=== PATIENT | female | born 1955 | race Caucasian/White ===

== ENCOUNTER → 2019-09-11 | Outpatient (CLI) | payer BC | END | disposition home or self-care (01) | LOC: RAH 12:19 | PROVIDERS: ATTEND Family Medicine | DX: G31.89 Other specified degenerative diseases of nervous system (principal) | CPT/HCPCS: 70450 ==

== ENCOUNTER → 2022-09-29 | Outpatient (CLI) | payer MEDICARE | END | disposition home or self-care (01) | LOC: RAH 13:53 | PROVIDERS: ATTEND Family Medicine | DX: Z12.31 Encounter for screening mammogram for malignant neoplasm of breast (principal) | CPT/HCPCS: 77067 ==

== ENCOUNTER → 2023-11-16 | Outpatient (CLI) | payer MEDICARE | END | disposition home or self-care (01) | LOC: RAH 09:03 | PROVIDERS: ATTEND Family Medicine | DX: Z12.31 Encounter for screening mammogram for malignant neoplasm of breast (principal); R92.333 Mammographic heterogeneous density, bilateral breasts | CPT/HCPCS: 77067 ==

== ENCOUNTER 2024-04-07 05:42 | Observation (INO) | payer MEDICARE ==
[2024-04-02 08:41] LABS: BASOPHILS # (AUTO) 0.08 K/uL (0.00-0.20); BASOPHILS % (AUTO) 0.9 % (0.0-5.0); EOSINOPHILS # (AUTO) 0.24 K/uL (0.00-0.70); EOSINOPHILS % (AUTO) 2.8 % (0.0-8.0); HEMATOCRIT 39.3 % (36-48); IMMATURE GRANULOCYTE ABSOLUTE 0.03 K/uL (0-1); LYMPHOCYTES # (AUTO) 3.3 K/uL (1.0-4.8); LYMPHOCYTES % (AUTO) 38.8 % (21.0-51.0); MEAN CORPUSCULAR HEMOGLOBIN 28.4 pg (27.0-33.0); MEAN CORPUSCULAR HGB CONC 32.1 g/dL (32.0-36.0); MEAN CORPUSCULAR VOLUME 88.7 fL (79-99); MONOCYTES # (AUTO) 0.6 K/uL (0.1-1.0); MONOCYTES % (AUTO) 6.5 % (3.0-13.0); NEUTROPHILS # (AUTO) 4.3 K/uL (1.8-7.7); NEUTROPHILS % (AUTO) 50.6 % (40.0-77.0); PLATELET COUNT (AUTO) 301 K/uL (130-400); RED BLOOD CELL COUNT(AUTO) 4.43 MIL/uL (4.00-5.50); RED CELL DISTRIBUTION WIDTH 13.3 % (11.0-15.5); WHITE BLOOD COUNT (AUTO) 8.5 K/uL (4.8-10.8)
[2024-04-02 08:59] VITALS: BP 198/74; PULSE 82; RESP 18; TEMP 98.4
[2024-04-02 08:59] LABS: INR 1.02 (0.85-1.15)
[2024-04-02 09:00] LABS: PARTIAL THROMBOPLASTIN TIME 26.4 SEC (26.3-35.5)
[2024-04-02 09:01] LABS: ALBUMIN 3.5 g/dL (3.5-5.0); CREATININE 0.7 mg/dL (0.5-1.0); POTASSIUM 3.5 mmol/L (3.5-5.1)
[2024-04-02 09:53] LABS: APPEARANCE,URINE CLOUDY (CLEAR); BILIRUBIN,URINE NEGATIVE (NEGATIVE); COLOR,URINE YELLOW (YELLOW); GLUCOSE, URINE (UA) NEGATIVE (NEGATIVE); KETONES,URINE NEGATIVE (NEGATIVE); LEUKOCYTE ESTERASE ,URINE 500 Leu/uL (NEGATIVE); NITRATE,URINE NEGATIVE (NEGATIVE); PROTEIN,URINE 20 mg/dL (NEGATIVE); UROBILINOGEN,URINE 0.2 mg/dL (0.2-1.0)
[2024-04-02 10:12] LABS: ADD UA MICROSCOPIC YES
[2024-04-02 10:32] LABS: BACTERIA,URINE FEW /HPF (None Seen); MUCUS,URINE FEW LPF (None Seen); SQUAMOUS EPITHELIAL CELL,UR MANY /HPF (0-2); TRANSITIONAL EPI CELLS,URINE RARE /HPF (None Seen); WBC,URINE TNTC /HPF (0-1)
--- NOTE | 2024-04-04 15:46 | NUR ---
RE: LABS REPORTED UA RESULTS AND URINE CX RESULTS TO DR REDDY. NO NEW ORDERS RECEIVED.
[2024-04-07] VITALS (27 sets, daily range): BP systolic 120–181; BP diastolic 42–86; PULSE 52–107; RESP 12–20; TEMP 97.3–98.4; O2SAT 95–98
[~2024-04-07] VITALS: Ht 175.3 cm; Wt 116.8 kg
[~2024-04-07 05:42] MED LIST: APPLE CIDER PO; B1 PO; B12 PO; OSTEO BIFLEX PO; TOTAL BEETS PO; ZINC PO; d3 PO
--- NOTE | 2024-04-07 06:45 | NUR ---
ORTHO COORDINATOR: KOOSJR TOTAL SCORE: 18 TOTAL KNEE PRE-OP ASSESSMENT COMPLETED ON PAPER.
[2024-04-07] MEDS ORDERED: proPOFol 10 MG/ML 20ML VIAL IV ONE ×3 (07:04→08:57)
[2024-04-07] MEDS ORDERED: FENTanyl CITRate PF 50 MCG/1 ML 2ML VIAL ONE ×2 (07:04→07:45)
[2024-04-07] MEDS ORDERED: rocuRONium bROMide 10MG/1ML 5ML VL ONE (07:04)
[2024-04-07] MEDS ORDERED: LIDOCAINE PF 100MG/5ML (2%) SYRINGE 5ML ONE (07:04)
[2024-04-07] MEDS ORDERED: ROPivacaine 0.5% 5MG/ML 30ML ONE (07:11)
[2024-04-07] MEDS ORDERED: ondanSETRON 4MG INJ ONE (07:22)
[2024-04-07] MEDS ORDERED: dexaMETHasone SOD PHOSPHATE 10MG/ML 1ML VIAL ONE (07:22)
[2024-04-07] MEDS ORDERED: TRANEXAMIC ACID 1000MG/10ML ONE (07:23)
[2024-04-07] MEDS: ceFAZolin SODIUM 2 GM VIAL ONE (07:25)
[2024-04-07] MEDS ORDERED: ondanSETRON 4MG INJ IVP PRN (07:30)
[2024-04-07] MEDS ORDERED: DiphenhydrAMINE HCL 50 MG/ML VIAL IVP PRN (07:30)
[2024-04-07] MEDS ORDERED: PoTASSium chloRIDE 20MEQ ER 20 MEQ ERTAB PO PRN (07:30)
[2024-04-07] MEDS ORDERED: PoTASSium chloRIDE 20MEQ/100ML 100 ML IV PRN (07:30)
[2024-04-07] MEDS ORDERED: CALCIUM CARB 500MG PO PRN (07:30)
[2024-04-07] MEDS ORDERED: PoTASSium chl 10% ELIXIR 20MEQ 20 MEQ/15 ML UDCUP PO PRN (07:30)
[2024-04-07] MEDS ORDERED: CYCLOBENZAPRINE HCL 10 MG TABLET PO PRN (07:30)
[2024-04-07] MEDS: ketOROlac 15MG/ML VIAL (15MG/ML) IV SCH (07:30)
[2024-04-07] MEDS ORDERED: FERROUS FUMARATE 324 MG TABLET PO PRN (07:30)
[2024-04-07] MEDS: ketOROlac 30MG VIAL (30MG/ML) ONE (08:06)
[2024-04-07] MEDS: ROPivacaine 0.5% 5MG/ML 30ML ONE (08:07)
[2024-04-07] MEDS: TOTAL BEETS PO SCH (09:00)
[2024-04-07] MEDS: THIAMINE HCL 100 MG TABLET PO SCH (09:00)
[2024-04-07] MEDS: OSTEO BIFLEX PO SCH (09:00)
[2024-04-07] MEDS: polyETHYLene GLYCol 3350 17 GM POWD.PACK PO SCH (09:00)
[2024-04-07] MEDS: doCUSate SODIUM 100 MG CAP PO SCH (09:00)
[2024-04-07] MEDS: ASPIRIN 81 MG EC TAB PO SCH (09:00)
[2024-04-07] MEDS: CYANOCOBALAMIN (VITAMIN B-12) 100 MCG TABLET PO SCH (09:00)
[2024-04-07] MEDS: APPLE CIDER PO SCH (09:00)
[2024-04-07] MEDS: ZINC 15 MG PO SCH (09:00)
[2024-04-07] MEDS ORDERED: NEOSTIGMINE METHYLSULFATE 1MG/ML IV ONE (09:08)
[2024-04-07] MEDS ORDERED: GLYCOPYRROLATE 0.2 MG/ML 5 ML VIAL ONE (09:08)
[2024-04-07] MEDS: MEPERIDINE-PF 25 MG/ML SYG ONE ×2 (10:12→10:22)
[2024-04-07] MEDS: LACTATED RINGERS 1000ML 1,000 ML IV ONE (10:18)
[2024-04-07] MEDS: ketOROlac 15MG/ML VIAL (15MG/ML) ONE (10:48)
--- NOTE | 2024-04-07 10:55 | NUR ---
NOTE PATIENT AERATED FROM POST-OP PROCEDURE, POST OP VITALS IN PROGRESS, SEE EMAR. DRESSING TO LEFT KNEE CDI. SON AT BEDSIDE. PT LYING IN BED COMFORTABLY. CB IN REACH. DENIES ANY NEEDS AT THIS TIME.
[2024-04-07] MEDS: GABApentin 100 MG CAPSULE PO SCH (11:29)
[2024-04-07] MEDS: D3 PO SCH (11:31)
--- NOTE | 2024-04-07 12:08 | HMCIMG ---
KNEE/PATELLA 1-2VWS LT HISTORY: Postop COMPARISON: None TECHNIQUE: 2 images of left knee were obtained. FINDINGS: Total left knee arthroplasty changes are seen. There are soft tissue swelling with soft tissue emphysema with postop changes. Alignment appears be grossly adequate. There is no acute displaced fracture or dislocation. Degenerative changes are seen. IMPRESSION: 1. Findings as described above.
--- NOTE | 2024-04-07 13:00 | NUR ---
ORTHO COORDINATOR: TEACHING REGARDING DVT AND PNEUMONIA PREVENTION, PAIN EXPECTATIONS, PAIN MANAGEMENT. PATIENT IN BED. FAMILY AT BEDSIDE. B SCD'S APPLIED AND FUNCTIONING. PATIENT RETURN DEMONSTRATED PROPER USE OF INCENTIVE SPIROMETER AND FOOT EXTENSION/FLEXION EXERCISES. REVIEWED NUMERIC PAIN SCALE. INFORMED PATIENT PAIN MEDICATION MUST BE REQUESTED. REVIEWED MEDICATIONS ARE ASSIGNED BY NUMERICAL VALUE AND NOT TO WAIT UNTIL PAIN REACHES 8 TO 10. PATIENT AND FAMILY VERBALIZED UNDERSTANDING. EXPLAINED IMPORTANCE OF PREMEDICATION PRIOR TO PHYSICAL THERAPY. PATIENT AND FAMILY VERBALIZED UNDERSTANDING. PATIENT WILL NEED A WALKER AND DESIRES PHYSICAL THERAPY AT HOME. NO ADDITIONAL QUESTIONS OR CONCERNS AT THIS TIME.
--- NOTE | 2024-04-07 13:05 | OP ---
Operative Note: DATE OF PROCEDURE: 04/07/24 PREOPERATIVE DIAGNOSIS: Left knee osteoarthritis. POSTOPERATIVE DIAGNOSIS: Left knee osteoarthritis. PROCEDURE PERFORMED: Left knee total knee arthroplasty. SURGEON: Velma Green MD POWDER MIXER: Brooklynn Murray. ANESTHESIA: General with adductor canal block. ANESTHESIA: REMI Zhu. ESTIMATED BLOOD LOSS: 50cc. COMPLICATIONS: None. DRAINS: None. SPECIMENS REMOVED: resected bone. Not sent to pathology. IMPLANTS: [employer]hew Journey II BCS size 6 Oxinium femur, size 5 tibial base plate, 35 mm patella, 11 mm polyethylene STATEMENT OF MEDICAL NECESSITY: The patient is a 69-year-old female who suffers from left knee osteoarthritis failing conservative management. After discussion of the risks, benefits, and alternatives with the patient, they voluntarily agreed to undergo the aforementioned procedure. DESCRIPTION OF PROCEDURE: Patient was properly identified in the preoperative holding area. Surgical site marking was verified and surgery consent reviewed. The patient was then taken to the operating room and placed in supine position on the OR table. After induction of general anesthesia, preoperative antibiotics were given, all bony prominences were well-padded, and a well padded tourniquet was applied but not inflated at this time. The left lower extremity was then prepped and draped in usual sterile fashion. Surgical time out was done verifying correct surgery, side, site, and location to be performed. We then began the procedure by exsanguinating the limb using an Esmarch and inflating the tourniquet to 350 mmHg. At this point, we made an anterior midline incision using a 10 blade, coming down sharply the level of the fascia. Skin flaps were elevated medially and laterally. We then obtained a clean 10 blade and performed a standard medial parapatellar arthrotomy. We excised the infrapatellar fat pad. We performed our soft tissue releases off of the tibia. We transected the ACL and removed the anterior portion of the medial & lateral meniscus. We then brought the knee into hyperflexion with the patella everted. We used our entry reamer to enter the femoral canal. We then placed our intramedullary cutting guide for our distal femoral cutting block. We then performed our distal femoral osteotomy ensuring appropriate rotation and removed the bony wafer. We then removed these pins and block and then used jig 2 to size the distal femur with the after mentioned size found. We then placed our 5-in-1 cutting block in 4 degrees of external rotation and took our 5 cuts ensuring to protect the patellar tendon and the collateral ligaments. We then removed the cutting block and our bony fragments using a curved osteotome. We then placed our PCL retractor subluxating the tibia anteriorly. Using an extra medullary tibial cutting guide, we hung the block for our proximal tibial cut taking 2 mm off the more diseased portion. Prior to pinning this block in place, we ensured appropriate varus/valgus alignment and posterior slope similar to the viejas slope of the patient's knee. We then performed our proximal tibial osteotomy and removed the bony wafer using Bovie electrocautery to release any remaining soft tissue attachments. We then used our tibial sizing paddle and checked once more for varus & valgus alignment and found this to be appropriate. At this point, we pinned our tibial paddle in place. We then removed the PCL retractor and subluxated the tibia posteriorly while we placed our femoral trial component. We then finished preparing the notch with the reamer and box chisel. The notch portion of the trial femoral component was then placed. A posterior stabilized polyethylene, size 9 trial was placed. This was immediately increased up to a size 10 secondary to mild laxity with varus valgus stressing. The knee was then taken through range of motion and found to have stable full range of motion. We then placed a bump under the ankle and everted the patella to perform our freehand cut of the undersurface the patella. We then sized our patella and reamed to the lug holes for this. We placed our trial patellar component and begin to take the knee through range of motion. The patella had mild lateral tracking and a small lateral release was performed. At this point we began removing our trial components and punched the tibial keel prior to removing our tibial trial component. Final components were opened and cement was mixed on the back table while we injected local cocktail in the posterior capsule. We then thoroughly irrigated out the bone and dried the bony surfaces. We cemented our tibial component in place ensuring to remove excess cement and placed our trial polyethylene. We then cemented our femoral component in place once again taking time to ensure excess cement was removed leg was brought into full extension to help squeeze the excess cement from around the femoral component. We then brought the knee back in a flexion to remove this portion of the cement at this point we placed the ankle in a bump thoroughly irrigated off the patellar component and cemented our patellar component in standard fashion again removing excess cement. While we waited for the cement to cure, we thoroughly irrigated out the wound with normal saline. Once our cement had cured, we took the knee through a range of motion and found full and stable range of motion. We then elected to use the size 11 polyethylene and removed our trial polyethylene. We impacted our final polyethylene component in place in standard fashion and took the knee through a range of motion check once more. This was satisfactory so we began to repair the arthrotomy using #1 Vicryl in interrupted [id number] fashion. Subcutaneous tissue was repaired using 2-0 Vicryl. Running subcuticular 3-0 Monocryl stitch with Dermabond placed over this for the skin. We then applied a foam barrier dressing and a pressure dressing consisting of 4 x 4's fluffs and an Samuel wrap. The tourniquet was then deflated. Patient was awakened from anesthesia, and they were taken to the recovery room in stable condition. VELMA GREEN MD Apr 07, 2024 13:05
[2024-04-07] MEDS: HYDROcodone/APAP 5/325 1 TAB TABLET PO PRN (13:15)
[2024-04-07] MEDS: ceFAZolin SODIUM 2 GM VIAL IVP SCH (13:15)
[2024-04-07] MEDS: 0.9%NACL 1000ML 1,000 ML IV SCH (13:15)
--- NOTE | 2024-04-07 17:00 | NUR ---
[facility] DC OUTREACH EDUCATOR MET WITH PT THIS AFTERNOON. PT IS INDEPENDENT PRIOR TO SURGERY, LIVES AT HOME WITH SON. PATIENT HAS A CANE, WALKER, WHEELCHAIR. DENIES ANY OTHER EQUIPMENT/SERVICES. FEELS SAFE TO GO BACK HOME, STILL SONS ABLE TO ASSIST WITH TRANSPORTATION AND NEEDS NECESSARY. DISCUSSED HOME W/HH VS SHORT TERM REHAB W/SNF, PT PREFERRED HOME W/HH, CONSENT SIGNED ADRIANA FOR [facility]. CM SENT ORDER, CLINICALS, PT TO [facility] VIA SECURE FAX AND EMAIL, CONFIRMATION RECEIVED. CM SPOKE TO NICOLE W/[facility] MADE AWARE OF NEW REFERRAL, WILL CHECK BENEFITS, AND CALL CM BACK TOMORROW. PT PENDING APPROVAL AND ACCEPTANCE. CM TO CONTINUE TO FOLLOW UP. Addendum: 04/08/24 at 1313 by GREGORIO ENCISO LVN Amended: Links added.
[2024-04-08 03:33] VITALS: BP 134/65; PULSE 91; RESP 20; TEMP 98.1
[2024-04-08 06:15] LABS: MEAN CORPUSCULAR HGB CONC 32.9 g/dL (32.0-36.0); MEAN CORPUSCULAR VOLUME 88.1 fL (79-99); RED BLOOD CELL COUNT(AUTO) 3.52 MIL/uL (4.00-5.50); RED CELL DISTRIBUTION WIDTH 13.7 % (11.0-15.5); WHITE BLOOD COUNT (AUTO) 12.4 K/uL (4.8-10.8)
[2024-04-08 06:23] LABS: CREATININE 0.8 mg/dL (0.5-1.0); POTASSIUM 3.7 mmol/L (3.5-5.1)
[2024-04-08 08:00] VITALS: BP 124/61; PULSE 96; RESP 18; TEMP 98.8; O2SAT 95
--- NOTE | 2024-04-08 08:10 | PN ---
Ortho postop day one. This morning patient is awake alert and oriented. She is in no acute distress reporting adequate pain control. Out of bed enjoying her breakfast. Vital signs are stable. She is afebrile. Laboratory results reviewed. Noted to have a drop in hemoglobin and hematocrit as expected after total knee arthroplasty. Patient is asymptomatic. We will continue to monitor and address per protocol as necessary. Voiding on her own without difficulty. Performing incentive spirometry as instructed with adequate returned demonstration. Operative findings discussed with the patient. Dressing is intact. Distal neurovascular exam intact. Gastrocnemius a soft nontender. Bilateral SCD stockings are currently on.. Patient ambulated yesterday with physical therapy about 60 & 50 ft and is pending further physical therapy this morning. The patient is anticipating being considered for HH/PT. Assessment: Status post left total knee arthroplasty. Asymptomatic acute postoperative blood loss anemia. Plan: Continue with Dr. Green's total knee arthroplasty protocol and discharge planning. Asymptomatic acute postoperative blood loss anemia addressed with the protocol Vitals/Labs Vital Signs Date Time Temp Pulse Resp B/P (MAP) Pulse Ox O2 Delivery O2 Flow Rate FiO2 04/08/24 03:33 98.1 91 20 134/65 98 Room Air 04/07/24 19:04 0 21 Laboratory Tests 04/08/24 05:46 Medications Current Medications Cefazolin Sodium 2 gm STK-MED ONCE .ROUTE Last administered on 04/07/24at 07:25; Start 04/07/24 at 06:09; Stop 04/07/24 at 06:09; Status DC Lactated Ringer's 1,000 ml @ As Directed STK-MED ONCE IV Last administered on 04/07/24at 10:18; Start 04/07/24 at 06:09; Stop 04/07/24 at 06:09; Status DC Lidocaine HCl 100 mg STK-MED ONCE .ROUTE; Start 04/07/24 at 07:04; Stop 04/07/24 at 07:09; Status DC Propofol 200 mg STK-MED ONCE IV; Start 04/07/24 at 07:04; Stop 04/07/24 at 07:09; Status DC Rocuronium [place] 50 mg STK-MED ONCE .ROUTE; Start 04/07/24 at 07:04; Stop 04/07/24 at 07:09; Status DC Fentanyl Citrate 100 mcg STK-MED ONCE .ROUTE; Start 04/07/24 at 07:04; Stop 04/07/24 at 07:10; Status DC Ropivacaine 150 mg STK-MED ONCE .ROUTE; Start 04/07/24 at 07:11; Stop 04/07/24 at 07:11; Status DC Sodium Chloride 1,000 ml @ 100 mls/hr Q10H IV Last administered on 04/08/24at 03:14; Start 04/07/24 at 07:30; Stop 04/08/24 at 07:29 Polyethylene Glycol 17 gm DAILY PO; Start 04/07/24 at 09:00; Stop 05/07/24 at 08:59 Bisacodyl 10 mg DAILY PRN RC; Start 04/10/24 at 07:30; Stop 05/10/24 at 07:29 Ketorolac Tromethamine 15 mg Q6H PRN IV; Start 04/08/24 at 07:30; Stop 04/12/24 at 07:29 Ferrous Fumarate 324 mg DAILY PRN PO; Start 04/07/24 at 07:30; Stop 05/07/24 at 07:29 Ondansetron HCl 4 mg Q6H PRN IVP; Start 04/07/24 at 07:30; Stop 05/07/24 at 07:29 Calcium Carbonate 500 mg Q12H PRN PO; Start 04/07/24 at 07:30; Stop 05/07/24 at 07:29 Diphenhydramine HCl 25 mg Q6H PRN IVP; Start 04/07/24 at 07:30; Stop 05/07/24 at 07:29 Cefazolin Sodium 2 gm Q8H IVP Last administered on 04/07/24at 21:17; Start 04/07/24 at 12:30; Stop 04/07/24 at 20:31; Status DC Cyclobenzaprine HCl 5 mg Q8H PRN PO; Start 04/07/24 at 07:30; Stop 05/07/24 at 07:29 Gabapentin 100 mg TID PO Last administered on 04/07/24at 21:18; Start 04/07/24 at 09:00; Stop 05/07/24 at 08:59 Ketorolac Tromethamine 15 mg Q8H IV Last administered on 04/08/24at 00:06; Start 04/07/24 at 07:30; Stop 04/07/24 at 23:31; Status DC Docusate Sodium 100 mg BID PO Last administered on 04/07/24at 21:18; Start 04/07/24 at 09:00; Stop 05/07/24 at 08:59 Potassium Chloride 100 ml @ 100 mls/hr AD PRN IV; Start 04/07/24 at 07:30; Stop 05/07/24 at 07:29 Potassium Chloride 20 meq AD PRN PO; Start 04/07/24 at 07:30; Stop 05/07/24 at 07:29 Potassium Chloride 20 meq AD PRN PO; Start 04/07/24 at 07:30; Stop 05/07/24 at 07:29 Tramadol HCl 50 mg Q6H PRN PO; Start 04/07/24 at 07:30; Stop 04/12/24 at 07:29 Acetaminophen/ Hydrocodone Bitart Q4H PRN PO Last administered on 04/08/24at 06:06; Start 04/07/24 at 07:30; Stop 04/12/24 at 07:29 Home Med [Apple Cider] 1,877 MG) DAILY PO; Start 04/07/24 at 09:00; Stop 05/07/24 at 08:59 Vitamin B Complex 300 mcg DAILY PO; Start 04/07/24 at 09:00; Stop 05/07/24 at 08:59 Thiamine HCl 100 mg DAILY PO; Start 04/07/24 at 09:00; Stop 05/07/24 at 08:59 Home Med ([d3] 50 MG) DAILY PO; Start 04/07/24 at 09:00; Stop 05/07/24 at 08:59 Home Med ([Osteo Biflex] 1 TAB) DAILY PO; Start 04/07/24 at 09:00; Stop 05/07/24 at 08:59 Home Med ([Total Beets] 650 MG) DAILY PO; Start 04/07/24 at 09:00; Stop 05/07/24 at 08:59 Home Med ([Zinc] 15 MG) DAILY PO; Start 04/07/24 at 09:00; Stop 05/07/24 at 08:59 Aspirin 81 mg BID PO Last administered on 04/07/24at 21:18; Start 04/07/24 at 09:00; Stop 05/07/24 at 08:59 Ondansetron HCl 4 mg STK-MED ONCE .ROUTE; Start 04/07/24 at 07:22; Stop 04/07/24 at 07:22; Status DC Dexamethasone Sodium Phosphate 10 mg STK-MED ONCE .ROUTE; Start 04/07/24 at 07:22; Stop 04/07/24 at 07:22; Status DC Tranexamic Acid 1,000 mg STK-MED ONCE .ROUTE; Start 04/07/24 at 07:23; Stop 04/07/24 at 07:23; Status DC Ketorolac Tromethamine 30 mg STK-MED ONCE .ROUTE Last administered on 04/07/24at 08:06; Start 04/07/24 at 07:24; Stop 04/07/24 at 07:24; Status DC Ropivacaine 150 mg STK-MED ONCE .ROUTE Last administered on 04/07/24at 08:07; Start 04/07/24 at 07:24; Stop 04/07/24 at 07:25; Status DC Propofol 200 mg STK-MED ONCE IV; Start 04/07/24 at 07:45; Stop 04/07/24 at 07:45; Status DC Fentanyl Citrate 100 mcg STK-MED ONCE .ROUTE; Start 04/07/24 at 07:45; Stop 04/07/24 at 07:46; Status DC Propofol 200 mg STK-MED ONCE IV; Start 04/07/24 at 08:57; Stop 04/07/24 at 08:57; Status DC Glycopyrrolate 1 mg STK-MED ONCE .ROUTE; Start 04/07/24 at 09:08; Stop 04/07/24 at 09:08; Status DC Neostigmine Methylsulfate 10 mg STK-MED ONCE IV; Start 04/07/24 at 09:08; Stop 04/07/24 at 09:08; Status DC Meperidine HCl 25 mg STK-MED ONCE .ROUTE Last administered on 04/07/24at 10:12; Start 04/07/24 at 10:10; Stop 04/07/24 at 10:10; Status DC Meperidine HCl 25 mg STK-MED ONCE .ROUTE Last administered on 04/07/24at 10:22; Start 04/07/24 at 10:20; Stop 04/07/24 at 10:21; Status DC Ketorolac Tromethamine 15 mg STK-MED ONCE .ROUTE Last administered on 04/07/24at 10:48; Start 04/07/24 at 10:45; Stop 04/07/24 at 10:45; Status DC STARR FRANCES NP Apr 08, 2024 08:10
[2024-04-08] MEDS: traMADol HCL 50 MG TABLET PO PRN (08:43)
[2024-04-08] MEDS: ketOROlac 15MG/ML VIAL (15MG/ML) IV PRN (11:27)
[2024-04-08 12:00] VITALS: BP 128/64; PULSE 86; RESP 18; TEMP 98.4
--- NOTE | 2024-04-08 12:57 | NUR ---
CM NOTE: [facility] PT SPOKE TO NICOLE W/[facility], PT HAS APPROVAL, REP WILL SCHEDULE HH VISIT W/PT DAY AFTER D/C. PRIMARY NURSE BERNARDO MADE AWARE. DR LEDESMA UPDATED. CM TO CONTINUE TO FOLLOW UP.
--- NOTE | 2024-04-08 17:00 | NUR ---
ORTHO COORDINATOR: REINFORCED TEACHING. PAIN MANAGEMENT REVIEWED. PATIENT IN BED. REPORTS UTILIZING INCENTIVE SPIROMETER SCHEDULED. PATIENT HAS NOT PASSED GAS OR HAD A BOWEL MOVEMENT SINCE SURGERY. STATES HER BOWEL HABITS ARE NOT REGULAR AND THIS IS NOT UNCOMMON. REINFORCED TO CONTINUE PREMEDICATING PRIOR TO PHYSICAL THERAPY WHILE RECEIVING THERAPY AT HOME AND TO CONTINUE USE OF INCENTIVE SPIROMETER. PATIENT VERBALIZED UNDERSTANDING. NO ADDITIONAL QUESTIONS OR CONCERNS. 1701 REPORT REGARDING BOWELS TO PRIMARY NURSE. PRIMARY NURSE VERBALIZED UNDERSTANDING.
[2024-04-08 19:15] VITALS: O2SAT 96
[2024-04-08 19:45] VITALS: BP 141/61; PULSE 102; RESP 20; TEMP 99.1
[2024-04-08 23:06] VITALS: BP 137/55; PULSE 112; RESP 21; TEMP 99.9
[2024-04-09 03:04] VITALS: BP 142/63; PULSE 113; RESP 20; TEMP 100.8
[2024-04-09 08:00] VITALS: BP 140/66; PULSE 96; RESP 19; TEMP 98.8; O2SAT 93
[2024-04-09] MEDS ORDERED: AEC81 PO (10:47)
[2024-04-09] MEDS ORDERED: CYCL-309 PO (10:47)
[2024-04-09] MEDS ORDERED: DOCU-116 PO (10:47)
[2024-04-09] MEDS ORDERED: GABA100C PO (10:47)
[2024-04-09] MEDS ORDERED: HYDR-4060 PO (10:47)
--- NOTE | 2024-04-09 10:54 | DS ---
Discharge Summary Hospital Course Summary: The patient was admitted to the hospital postoperatively on 04/07/2024 after undergoing left total knee arthroplasty. They did well with routine postoperative pain control. They worked well with physical therapy. She developed some acute postoperative blood loss anemia but remained asymptomatic. The hospital course was otherwise uncomplicated. They were subsequently able to be discharged on postoperative day 2 once discharge arrangements were made with [facility] health. Machine Strap Buckler(s): none Procedure(s): Left total knee arthroplasty 04/07/2024 Assessment/Plan: Ortho postop day two Patient reports pain but states with control. T-max 100.8 mild tachycardia, mild hypotension, remaining vital signs stable No acute distress alert and oriented x3 Nonlabored breathing LLE: Patient is seen today ambulating in the [place] with physical therapy. Has a good gait with the appropriate heel strike. Appears to be achieving full extension of the knee. The patient was able to ambulate with physical therapy yesterday 100/120 feet in the a.m./p.m. Discharge planning is for home health with a PC, patient has been accepted ASSESSMENT: Postop day two status post left total knee arthroplasty doing well Asymptomatic acute blood loss anemia PLAN: Discharge instructions Discharge Instructions: Begin working with Home Health physical therapy. Dressing may be removed 04/10/24 and left open to air. Showers ok allowing soap and water to run over the wound. Pat dry. Do not submerge wound in tub/pool. Do not apply ointments. Do not apply Betadine. Do not apply peroxide. Ice packs to decrease pain/swelling. Prescriptions have been sent to the pharmacy: *[place] 5/325mg 1-2 tab every 6 hours as needed for severe pain. (please call for refills) Cyclobenzaprine 5mg 1 tab every 8 hours as needed for muscle spasm pain. Gabapentin 100mg 1 tab every 8 hours (may discontinue if drowsy). Colace 100mg 1 tab orally twice a day as needed for constipation. Aspirin 81 mg twice a day for 30 days to prevent blood clots. Call for a follow-up appointment in 2-3 weeks at [facility]. Home Medications: Active Scripts Hydrocodone/Acetaminophen (Hydrocodon-Acetaminophen 5-325) 5 Mg-325 Mg Tablet, 1-2 TAB PO Q6HPRN PRN for MODERATE/SEVERE PAIN LEVEL, #56 TAB 0 Refills Prov:ALEX REDDY MD 04/09/24 Reported Medications [B1] No Conflict Check, 100 MG PO DAILY 04/02/24 [Total Beets] No Conflict Check, 650 MG PO DAILY 04/02/24 [Osteo Biflex] No Conflict Check, 1 TAB PO DAILY 04/02/24 [Apple Cider] No Conflict Check, 1877 MG PO DAILY 04/02/24 [Zinc] No Conflict Check, 15 MG PO DAILY 04/02/24 [B12] No Conflict Check, 300 MCG PO DAILY 04/02/24 [d3] No Conflict Check, 50 MG PO DAILY 04/02/24 ALEX REDDY MD Apr 09, 2024 10:54
[2024-04-09 12:00] VITALS: BP 156/81; PULSE 94; RESP 18; TEMP 98.4
--- NOTE | 2024-04-09 13:47 | NUR ---
PATIENT DISCHARGED GAVE PATIENT PRINTED DISCHARGE INSTRUCTIONS, EDUCATED ON FOLLOW UP APPOINTMENTS, DIET, ACTIVITY, AND MEDICATIONS. EDUCATED PATIENT AND FAMILY REGARDING SIGNS AND SYMPTOMS TO OBSERVE FOR INFECTION. ANSWERED PATIENT QUESTIONS, PATIENT AND FAMILY UNDERSTOOD.
[2024-04-10] MEDS ORDERED: BisaCODYL 10 MG SUPP.RECT RC PRN (07:30)
== END 2024-04-09 13:55 | disposition home or self-care (01) ==
LOC: DAH 05:42 → DAHIP 05:43 → DAH 05:43 → 4BH 10:55
PROVIDERS: ADMIT Student in an Organized Health Care Education/Training Program; ATTEND Student in an Organized Health Care Education/Training Program
DX: M17.12 Unilateral primary osteoarthritis, left knee (principal); D62 Acute posthemorrhagic anemia; I10 Essential (primary) hypertension; Z79.899 Other long term (current) drug therapy
CPT/HCPCS: 82040; 80048 ×2; 85025; 85610; 85730; 87086; 84134; 86140; 81001; 36415 ×2; 87641; 27447; 64447; 96374; 96376 ×3; 96375; 73560; 97161; 97116 ×5; 97530 ×5; 85027; G0378 ×48; A4663; J7120; J3010 ×2; J3490 ×3; J1100; J2003; J2704 ×3; J2405; J1885 ×6; J2710; J2175 ×2; J2795 ×2; J0690 ×3; C1713 ×2; C1776 ×2; A4649 ×2; A4930; A6255; A4215; A4223; A4222; A4221

== ENCOUNTER 2024-11-10 05:44 | Observation (INO) | payer MEDICARE ==
[2024-11-04 09:28] LABS: BASOPHILS # (AUTO) 0.09 K/uL (0.00-0.20); BASOPHILS % (AUTO) 1.2 % (0.0-5.0); EOSINOPHILS # (AUTO) 0.39 K/uL (0.00-0.70); HEMATOCRIT 40.9 % (36-48); IMMATURE GRANULOCYTE ABSOLUTE 0.02 K/uL (0-1); LYMPHOCYTES # (AUTO) 2.6 K/uL (1.0-4.8); LYMPHOCYTES % (AUTO) 34.1 % (21.0-51.0); MEAN CORPUSCULAR HEMOGLOBIN 27.7 pg (27.0-33.0); MEAN CORPUSCULAR HGB CONC 31.1 g/dL (32.0-36.0); MEAN CORPUSCULAR VOLUME 89.1 fL (79-99); MONOCYTES # (AUTO) 0.6 K/uL (0.1-1.0); MONOCYTES % (AUTO) 7.2 % (3.0-13.0); NEUTROPHILS % (AUTO) 52.2 % (40.0-77.0); PLATELET COUNT (AUTO) 291 K/uL (130-400); RED BLOOD CELL COUNT(AUTO) 4.59 MIL/uL (4.00-5.50); RED CELL DISTRIBUTION WIDTH 13.5 % (11.0-15.5); WHITE BLOOD COUNT (AUTO) 7.7 K/uL (4.8-10.8)
--- NOTE | 2024-11-04 09:30 | NUR ---
PREOP INCENTIVE SPIROMETRY TEACHING DONE BY VICKY DAVIS
[2024-11-04 09:36] LABS: APPEARANCE,URINE CLOUDY (CLEAR); BILIRUBIN,URINE NEGATIVE (NEGATIVE); COLOR,URINE YELLOW (YELLOW); GLUCOSE, URINE (UA) NEGATIVE (NEGATIVE); KETONES,URINE NEGATIVE (NEGATIVE); LEUKOCYTE ESTERASE ,URINE 500 Leu/uL (NEGATIVE); NITRATE,URINE NEGATIVE (NEGATIVE); OCCULT BLOOD,URINE NEGATIVE (NEGATIVE); PROTEIN,URINE NEGATIVE (NEGATIVE); UROBILINOGEN,URINE 0.2 mg/dL (0.2-1.0)
--- NOTE | 2024-11-04 09:37 | EKG ---
[facility] Test Date: 2024-11-04 Test Time: 09:17:46 Pat Name: CIERRA MACKENZIE Department: [facility] Room: Gender: F Internetworking Technician: [id number] : [id number] Requested By: ALEX REDDY Order Number: [id number] Reading MD: Donovan Mckeon Measurements Intervals [place] Rate: 72 P: 16 [place]: 156 QRS: -23 QRSD: 99 T: 31 QT: 402 QTc: 440 Interpretive Statements Sinus rhythm Low voltage, precordial leads No previous ECG available for comparison Electronically Signed On 11-05-2024 10:37:45 CDT by Donovan Mckeon Please click the below link to view image of tracing.
[2024-11-04 09:38] LABS: INR 0.99 (0.85-1.15); PROTHROMBIN TIME 10.5 SEC (9.6-11.6)
[2024-11-04 09:38] LABS: ADD UA MICROSCOPIC YES
[2024-11-04 09:40] LABS: BACTERIA,URINE FEW /HPF (None Seen); MUCUS,URINE RARE LPF (None Seen); SQUAMOUS EPITHELIAL CELL,UR MANY /HPF (0-2); WBC,URINE 51-100 /HPF (0-1)
[2024-11-04 09:40] LABS: ALBUMIN 3.7 g/dL (3.5-5.0); CREATININE 0.7 mg/dL (0.5-1.0); PARTIAL THROMBOPLASTIN TIME 25.1 SEC (26.3-35.5); POTASSIUM 4.5 mmol/L (3.5-5.1)
[2024-11-04 09:42] VITALS: BP 188/76; PULSE 78; RESP 18; TEMP 97.9
--- NOTE | 2024-11-07 08:50 | NUR ---
URINE CULTURE REPORTED URINE CULTURE RESULTS TO DR. REDDY (KLEBSIELLA PNEUMONIAE), SUSCEPTIBLE TO ANCEF(PT HAS ORDERS FOR ANCEF OFFSHORING MANAGER). NO NEW ORDERS RECEIVED
[2024-11-10] VITALS (28 sets, daily range): BP systolic 129–158; BP diastolic 59–85; PULSE 59–86; RESP 16–19; TEMP 97.3–98.4; O2SAT 95–98
[~2024-11-10] VITALS: Ht 175.3 cm; Wt 112.0 kg
[2024-11-10] MEDS ORDERED: LACTATED RINGERS 1000ML IV SCH (06:30)
[2024-11-10] MEDS: LACTATED RINGERS 1000ML 1,000 ML IV ONE (06:48)
[2024-11-10] MEDS: ceFAZolin SODIUM 2 GM VIAL ONE (06:48)
[2024-11-10] MEDS ORDERED: ROPivacaine 0.5% 5MG/ML 30ML ONE (06:55)
[2024-11-10] MEDS ORDERED: proPOFol 10 MG/ML 20ML VIAL IV ONE (06:58)
[2024-11-10] MEDS ORDERED: MIDAZOLAM HCL 1 MG/ML 2ML VIAL ONE (06:58)
[2024-11-10] MEDS ORDERED: rocuRONium bROMide 10MG/1ML 5ML VL ONE (06:59)
[2024-11-10] MEDS ORDERED: FENTanyl CITRate PF 50 MCG/1 ML 2ML VIAL ONE (06:59)
[2024-11-10] MEDS ORDERED: LIDOCAINE PF 100MG/5ML (2%) SYRINGE 5ML ONE (06:59)
[2024-11-10] MEDS ORDERED: dexaMETHasone SOD PHOSPHATE 10MG/ML 1ML VIAL ONE (07:24)
[2024-11-10] MEDS ORDERED: ondanSETRON 4MG INJ ONE (07:24)
[2024-11-10] MEDS: TRANEXAMIC ACID 1000MG/10ML ONE (07:35)
[2024-11-10] MEDS ORDERED: phenylEPHRINE HCL 10 MG/ML 1ML VIAL IV ONE (07:38)
[2024-11-10] MEDS: ketOROlac 30MG VIAL (30MG/ML) ONE (07:53)
[2024-11-10] MEDS: ROPivacaine 0.5% 5MG/ML 30ML ONE (07:54)
[2024-11-10] MEDS ORDERED: PoTASSium chl 10% ELIXIR 20MEQ 20 MEQ/15 ML UDCUP PO PRN (08:00)
[2024-11-10] MEDS ORDERED: ondanSETRON 4MG INJ IVP PRN (08:00)
[2024-11-10] MEDS ORDERED: HYDROcodone/APAP 5/325 1 TAB TABLET PO PRN ×2 (08:00)
[2024-11-10] MEDS ORDERED: PoTASSium chloRIDE 20MEQ/100ML 100 ML IV PRN (08:00)
[2024-11-10] MEDS ORDERED: CALCIUM CARB 500MG PO PRN (08:00)
[2024-11-10] MEDS ORDERED: traMADol HCL 50 MG TABLET PO PRN (08:00)
[2024-11-10] MEDS ORDERED: FERROUS FUMARATE 324 MG TABLET PO PRN (08:00)
[2024-11-10] MEDS ORDERED: PoTASSium chloRIDE 20MEQ ER 20 MEQ ERTAB PO PRN (08:00)
[2024-11-10] MEDS ORDERED: NEOSTIGMINE METHYLSULFATE 1MG/ML IV ONE (08:49)
[2024-11-10] MEDS ORDERED: GLYCOPYRROLATE 0.2 MG/ML 5 ML VIAL ONE (08:49)
--- NOTE | 2024-11-10 09:00 | OP ---
Operative Note: DATE OF PROCEDURE: 11/10/24 PREOPERATIVE DIAGNOSIS: Right knee osteoarthritis. POSTOPERATIVE DIAGNOSIS: Right knee osteoarthritis. PROCEDURE PERFORMED: Right knee total knee arthroplasty. SURGEON: Velma Green MD PHYSICS DEPARTMENT CHAIR: Brooklynn Murray. ANESTHESIA: General with adductor canal block. ANESTHESIA: REMI Lewis. ESTIMATED BLOOD LOSS: 50cc. COMPLICATIONS: None. DRAINS: None. SPECIMENS REMOVED: resected bone. Not sent to pathology. IMPLANTS: [employer] II BCS size 6 Oxinium femur, size 5 tibial base plate, 32 mm patella, 11 mm polyethylene STATEMENT OF MEDICAL NECESSITY: The patient is a 69-year-old female who suffers from right knee osteoarthritis failing conservative management. After discussion of the risks, benefits, and alternatives with the patient, they voluntarily agreed to undergo the aforementioned procedure. DESCRIPTION OF PROCEDURE: Patient was properly identified in the preoperative holding area. Surgical site marking was verified and surgery consent reviewed. The patient was then taken to the operating room and placed in supine position on the OR table. After induction of general anesthesia, preoperative antibiotics were given, all bony prominences were well-padded, and a well padded tourniquet was applied but not inflated at this time. The right lower extremity was then prepped and draped in usual sterile fashion. Surgical time out was done verifying correct surgery, side, site, and location to be performed. We then began the procedure by exsanguinating the limb using an Esmarch and inflating the tourniquet to 300 mmHg. At this point, we made an anterior midline incision using a 10 blade, coming down sharply the level of the fascia. Skin flaps were elevated medially and laterally. We then obtained a clean 10 blade and performed a standard medial parapatellar arthrotomy. We excised the infrapatellar fat pad. We performed our soft tissue releases off of the tibia. We transected the ACL and removed the anterior portion of the medial & lateral meniscus. We then brought the knee into hyperflexion with the patella everted. We used our entry reamer to enter the femoral canal. We then placed our intramedullary cutting guide for our distal femoral cutting block. We then performed our distal femoral osteotomy ensuring appropriate rotation and removed the bony wafer. We then removed these pins and block and then used jig 2 to size the distal femur with the after mentioned size found. We then placed our 5-in-1 cutting block in 4 degrees of external rotation and took our 5 cuts ensuring to protect the patellar tendon and the collateral ligaments. We then removed the cutting block and our bony fragments using a curved osteotome. We then placed our PCL retractor subluxating the tibia anteriorly. Using an extra medullary tibial cutting guide, we hung the block for our proximal tibial cut taking 2 mm off the more diseased portion. Prior to pinning this block in place, we ensured appropriate varus/valgus alignment and posterior slope similar to the tunica-biloxi slope of the patient's knee. We then performed our proximal tibial osteotomy and removed the bony wafer using Bovie electrocautery to release any remaining soft tissue attachments. We then used our tibial sizing paddle and checked once more for varus & valgus alignment and found this to be appropriate. At this point, we pinned our tibial paddle in place. We then removed the PCL retractor and subluxated the tibia posteriorly while we placed our femoral trial component. We then finished preparing the notch with the reamer and box chisel. The notch portion of the trial femoral component was then placed. A posterior stabilized polyethylene, size 9 trial was placed. We increased this to a size 11 trial polyethylene secondary to laxity with varus and valgus stress. The knee was then taken through range of motion and found to have stable full range of motion. We then placed a bump under the ankle and everted the patella to perform our freehand cut of the undersurface the patella. We then sized our patella and reamed to the lug holes for this. We placed our trial patellar component and begin to take the knee through range of motion. The patella had lateral tracking so we performed a lateral release. At this point we began removing our trial components and punched the tibial keel prior to removing our tibial trial component. Final components were opened and cement was mixed on the back table while we injected local cocktail in the posterior capsule. We then thoroughly irrigated out the bone and dried the bony surfaces. We cemented our tibial component in place ensuring to remove excess cement and placed our trial polyethylene. We then cemented our femoral component in place once again taking time to ensure excess cement was removed leg was brought into full extension to help squeeze the excess cement from around the femoral component. We then brought the knee back in a flexion to remove this portion of the cement at this point we placed the ankle in a bump thoroughly irrigated off the patellar component and cemented our patellar component in standard fashion again removing excess cement. While we waited for the cement to cure, we thoroughly irrigated out the wound with normal saline. Once our cement had cured, we took the knee through a range of motion and found full and stable range of motion. We then elected to use the size 11 polyethylene and removed our trial polyethylene. We impacted our final polyethylene component in place in standard fashion and took the knee through a range of motion check once more. This was satisfactory so we began to repair the arthrotomy using #5 Ethibond and #1 Vicryl in interrupted [id number] fashion. Subcutaneous tissue was repaired using 2-0 Vicryl. Running subcuticular 3-0 Monocryl stitch with Dermabond placed over this for the skin. We then applied a foam barrier dressing and a pressure dressing consisting of 4 x 4's fluffs and an Samuel wrap. The tourniquet was then deflated. Patient was awakened from an esthesia, and they were taken to the recovery room in stable condition. VELMA GREEN MD Nov 10, 2024 09:00
--- NOTE | 2024-11-10 09:03 | DS ---
Discharge Summary Hospital Course Summary: The patient was admitted to the hospital postoperatively on 11/10/2024 after undergoing right total knee arthroplasty. They did well with routine postoperative pain control. They worked well with physical therapy. They developed some acute blood loss anemia but remained asymptomatic. The hospital course was otherwise uncomplicated. They were subsequently able to be discharged on postoperative day [] once discharge arrangements were made with home health physical therapy. Alteration Worker(s): None Procedure(s): Right total knee arthroplasty, 11/10/2024 Assessment/Plan: ASSESSMENT: Status post right total knee arthroplasty Acute blood loss anemia PLAN: See discharge instructions Discharge Instructions: Begin working with home health physical therapy. Dressing may be removed 11/12/2024 and left open to air. Showers ok allowing soap and water to run over the wound. Pat dry. Do not submerge wound in tub/pool. Do not apply ointments. Do not apply Betadine. Do not apply peroxide. Ice packs to decrease pain/swelling. Prescriptions have been sent to the pharmacy: *[place] 5/325mg 1-2 tab every 6 hours as needed for severe pain. (please call for refills) Cyclobenzaprine 5mg 1 tab every 8 hours as needed for muscle spasm pain. Gabapentin 100mg 1 tab every 8 hours (may discontinue if drowsy). Colace 100mg 1 tab orally twice a day as needed for constipation. Aspirin 325mg twice a day for 30 days to prevent blood clots. Follow-up at [facility] on SundayDecember 01 at 1:45 p.m. Home Medications: Discontinued Reported Medications [B1] No Conflict Check, 100 MG PO DAILY 04/02/24 [Total Beets] No Conflict Check, 650 MG PO DAILY 04/02/24 [Osteo Biflex] No Conflict Check, 1 TAB PO DAILY 04/02/24 [Apple Cider] No Conflict Check, 1877 MG PO DAILY 04/02/24 [Zinc] No Conflict Check, 15 MG PO DAILY 04/02/24 [B12] No Conflict Check, 300 MCG PO DAILY 04/02/24 [d3] No Conflict Check, 50 MG PO DAILY 04/02/24 Discontinued Scripts Docusate Sodium (Colace) 100 Mg Capsule, 1 CAP PO BID for 30 Days, #60 CAP 0 Refills Prov:ALEX REDDY MD 04/09/24 Hydrocodone/Acetaminophen (Hydrocodon-Acetaminophen 5-325) 5 Mg-325 Mg Tablet, 1-2 TAB PO Q6HPRN PRN for MODERATE/SEVERE PAIN LEVEL, #56 TAB 0 Refills Prov:ALEX REDDY MD 04/09/24 Gabapentin (Neurontin) 100 Mg Capsule, 100 MG PO TID, #90 CAP 0 Refills Prov:ALEX REDDY MD 04/09/24 Cyclobenzaprine HCl (Cyclobenzaprine HCl) 10 Mg Tablet, 5 MG PO Q8H PRN for MUSCLE SPASMS, #45 TAB 0 Refills Prov:ALEX REDDY MD 04/09/24 Aspirin (ASPIRIN 81 MG ECTAB) 81 Mg Ectab, 81 MG PO BID, #60 TAB.EC 0 Refills Prov:ALEX REDDY MD 04/09/24 ALEX REDDY MD Nov 10, 2024 09:03
[2024-11-10] MEDS: FENTanyl CITRate PF 50 MCG/1 ML 2ML VIAL ONE (09:41)
[2024-11-10] MEDS: ketOROlac 15MG/ML VIAL (15MG/ML) ONE (09:48)
[2024-11-10] MEDS: ketOROlac 15MG/ML VIAL (15MG/ML) IV SCH (09:48)
--- NOTE | 2024-11-10 10:30 | NUR ---
ARRIVAL PATIENT ARRIVED VIA STRETCHER TO FLOOR. NO S/S OF DISTRESS NOTED UPON ARRIVAL. PATIENT DENIES ANY PAIN OR DISCOMFORT AT THIS TIME. WILL REVIEW ORDERS AND FOLLOW THROUGH.
[2024-11-10] MEDS: acetaMINOPHEN 100 ML ONE (10:36)
[2024-11-10] MEDS: FAMOTIDINE 20MG VIAL IV ONE (10:36)
[2024-11-10] MEDS: doCUSate SODIUM 100 MG CAP PO SCH (11:35)
[2024-11-10] MEDS: 0.9%NACL 1000ML 1,000 ML IV SCH (11:36)
[2024-11-10] MEDS: GABApentin 100 MG CAPSULE PO SCH (11:36)
[2024-11-10] MEDS: polyETHYLene GLYCol 3350 17 GM POWD.PACK PO SCH (11:36)
[2024-11-10] MEDS ORDERED: ceFAZolin SODIUM 2 GM VIAL IVP SCH (13:00)
--- NOTE | 2024-11-10 13:44 | HMCIMG ---
KNEE/PATELLA 1-2VWS RT HISTORY: Status post right total knee arthroplasty COMPARISON: None TECHNIQUE: 2 images of right knee were obtained. FINDINGS: Right total knee arthroplasty changes are seen. There are soft tissue swelling and soft tissue emphysema. There is no acute displaced fracture or dislocation. Degenerative changes are seen. IMPRESSION: 1. Findings as described above.
--- NOTE | 2024-11-10 15:15 | NUR ---
ORTHO COORDINATOR: TEACHING REGARDING DVT AND PNEUMONIA PREVENTION, PAIN EXPECTATIONS AND PAIN MANAGEMENT. PATIENT UP TO CHAIR, SON AT BEDSIDE. B SCD SLEEVES IN ROOM NO MACHINE. INCENTIVE SPIROMETER AT BEDSIDE. PATIENT VERBALIZED PROPER FREQUENCY OF USE OF INCENTIVE SPIROMETER. PATIENT RETURN DEMONSTRATED PROPER USE OF INCENTIVE SPIROMETER AND FOOT FLEXION/EXTENSION EXERCISES. PATIENT HAD LEFT TOTAL KNEE IN MARCH 2024. PAIN EXPECTATIONS REALISTIC. PATIENT REPORTS MORE PAIN WITH THIS SURGERY. REVIEWED NUMERIC PAIN SCALE. REVIEWED THAT PAIN MEDICATIONS WERE NEEDED, MEANING SHE NEEDS TO CALL OUT TO RECEIVE. PATIENT ENCOURAGED TO SET AN ALARM FOR EVERY FOUR HOURS AND SELF EVALUATE PAIN. PATIENT INSTRUCTED TO CALL OUT WITH NUMERIC PAIN VALUE AND TYPE OF PAIN. PATIENT AND SON VERBALIZED UNDERSTANDING. PATIENT REPORTS SHE THOUGHT SHE AUTOMATICALLY WAS PROVIDED PAIN MEDICATION LAST VISIT, REVIEWED SCHEDULED MEDICATIONS. PATIENT VERBALIZED UNDERSTANDING. PATIENT INTENDS TO RETURN HOME WITH HOME HEALTH PHYSICAL THERAPY, STILL HAS DME FROM LAST VISIT. NO ADDITIONAL QUESTIONS/CONCERNS AT THIS TIME. 1540 SCD MACHINE PLACED AT END OF BED. PATIENT CURRENTLY WITH PHYSICAL THERAPY.
[2024-11-10] MEDS: ceFAZolin SODIUM 2 GM VIAL IVP SCH (15:32)
[2024-11-11 00:02] VITALS: BP 128/59; PULSE 88; RESP 19; TEMP 99.1
[2024-11-11 03:46] LABS: HEMATOCRIT 32.5 % (36-48); MEAN CORPUSCULAR HEMOGLOBIN 27.7 pg (27.0-33.0); MEAN CORPUSCULAR VOLUME 86.7 fL (79-99); RED BLOOD CELL COUNT(AUTO) 3.75 MIL/uL (4.00-5.50); RED CELL DISTRIBUTION WIDTH 13.4 % (11.0-15.5); WHITE BLOOD COUNT (AUTO) 10.6 K/uL (4.8-10.8)
[2024-11-11 04:07] LABS: CREATININE 0.7 mg/dL (0.5-1.0); POTASSIUM 3.7 mmol/L (3.5-5.1)
[2024-11-11 04:16] VITALS: BP 136/64; PULSE 86; RESP 18; TEMP 98.6
[2024-11-11] MEDS: HYDROcodone/APAP 5/325 1 TAB TABLET PO PRN (06:18)
[2024-11-11 08:00] VITALS: BP 129/54; PULSE 70; PULSE 79; RESP 19; TEMP 98.7; O2SAT 90
[2024-11-11] MEDS ORDERED: ketOROlac 15MG/ML VIAL (15MG/ML) IV PRN (08:00)
--- NOTE | 2024-11-11 08:02 | PN ---
Ortho postop day one. This morning the patient is awake alert and oriented she is out of bed seated in a chair reporting adequate pain control. She is alternating extension and flexion using a footstool while seated. The Samuel bandage has been removed. The dressing to the anterior joint is intact. Ice is present to operative site. Vital signs have been stable. Afebrile. Laboratory results reviewed. Noted to have a drop in hemoglobin hematocrit as expected after TKA. Patient is asymptomatic and we will address per protocol as necessary. Voiding on her own without difficulty. Has not passed gas. Patient states that this is very common. Previous TKA to the contralateral extremity patient also did not have BM for up to five days. Patient states that it is normal for her to go several days without BM. Operative findings discussed with the patient. Reinforced incentive spirometry. Patient did very well yesterday with PT ambulating 40 ft and 50 ft. Therapy pending this morning. Anticipated discharge goal is home health/PT. Assessment: Status post right TKA. Asymptomatic acute postoperative blood loss anemia. Plan: Continue Dr. Green's TKA protocol and discharge planning. Asymptomatic acute postoperative blood loss anemia addressed with protocol Vitals/Labs Vital Signs Date Time Temp Pulse Resp B/P (MAP) Pulse Ox O2 Delivery O2 Flow Rate FiO2 11/11/24 04:16 98.6 86 18 136/64 96 Room Air 21 11/10/24 20:00 0 Laboratory Tests 11/11/24 03:27 Medications Current Medications Cefazolin Sodium 2 gm STK-MED ONCE .ROUTE Last administered on 11/10/24at 07:23; Start 11/10/24 at 06:21; Stop 11/10/24 at 06:21; Status DC Lactated Ringer's 1,000 ml @ As Directed STK-MED ONCE IV Last administered on 11/10/24at 06:48; Start 11/10/24 at 06:21; Stop 11/10/24 at 06:21; Status DC Lactated Ringer's 1,000 ml KVO IV; Start 11/10/24 at 06:30; Stop 12/10/24 at 06:29 Ketorolac Tromethamine 30 mg STK-MED ONCE .ROUTE Last administered on 11/10/24at 07:53; Start 11/10/24 at 06:46; Stop 11/10/24 at 06:46; Status DC Ropivacaine 150 mg STK-MED ONCE .ROUTE Last administered on 11/10/24at 07:54; Start 11/10/24 at 06:46; Stop 11/10/24 at 06:46; Status DC Acetaminophen 100 ml @ As Directed STK-MED ONCE .ROUTE; Start 11/10/24 at 06:52; Stop 11/10/24 at 06:53; Status DC Famotidine 20 mg STK-MED ONCE IV; Start 11/10/24 at 06:52; Stop 11/10/24 at 06:53; Status DC Ropivacaine 150 mg STK-MED ONCE .ROUTE; Start 11/10/24 at 06:55; Stop 11/10/24 at 06:55; Status DC Propofol 200 mg STK-MED ONCE IV; Start 11/10/24 at 06:58; Stop 11/10/24 at 06:59; Status DC Midazolam HCl 2 mg STK-MED ONCE .ROUTE; Start 11/10/24 at 06:58; Stop 11/10/24 at 06:59; Status DC Rocuronium [place] 50 mg STK-MED ONCE .ROUTE; Start 11/10/24 at 06:59; Stop 11/10/24 at 06:59; Status DC Fentanyl Citrate 100 mcg STK-MED ONCE .ROUTE; Start 11/10/24 at 06:59; Stop 11/10/24 at 06:59; Status DC Lidocaine HCl 100 mg STK-MED ONCE .ROUTE; Start 11/10/24 at 06:59; Stop 11/10/24 at 06:59; Status DC Ondansetron HCl 4 mg STK-MED ONCE .ROUTE; Start 11/10/24 at 07:24; Stop 11/10/24 at 07:24; Status DC Dexamethasone Sodium Phosphate 10 mg STK-MED ONCE .ROUTE; Start 11/10/24 at 07:24; Stop 11/10/24 at 07:24; Status DC Tranexamic Acid 1,000 mg STK-MED ONCE .ROUTE Last administered on 11/10/24at 07:35; Start 11/10/24 at 07:31; Stop 11/10/24 at 07:32; Status DC Sodium Chloride 1,000 ml @ 100 mls/hr Q10H IV Last administered on 11/10/24at 11:36; Start 11/10/24 at 08:00; Stop 11/11/24 at 07:59; Status DC Polyethylene Glycol 17 gm DAILY PO Last administered on 11/10/24at 11:36; Start 11/10/24 at 09:00; Stop 12/10/24 at 08:59 Bisacodyl 10 mg DAILY PRN RC; Start 11/13/24 at 08:00; Stop 12/13/24 at 07:59 Ketorolac Tromethamine 15 mg Q6H PRN IV; Start 11/11/24 at 08:00; Stop 11/16/24 at 07:59 Ferrous Fumarate 324 mg DAILY PRN PO; Start 11/10/24 at 08:00; Stop 12/10/24 at 07:59 Ondansetron HCl 4 mg Q6H PRN IVP; Start 11/10/24 at 08:00; Stop 12/10/24 at 07:59 Calcium Carbonate 500 mg Q12H PRN PO; Start 11/10/24 at 08:00; Stop 12/10/24 at 07:59 Cefazolin Sodium 2 gm Q8H IVP; Start 11/10/24 at 13:00; Stop 11/10/24 at 13:29; Status DC Cyclobenzaprine HCl 5 mg Q8H PRN PO; Start 11/10/24 at 08:00; Stop 12/10/24 at 07:59 Gabapentin 100 mg TID PO Last administered on 11/10/24at 19:50; Start 11/10/24 at 09:00; Stop 12/10/24 at 08:59 Aspirin 325 mg DAILY PO; Start 11/11/24 at 09:00; Stop 12/11/24 at 08:59 Ketorolac Tromethamine 15 mg Q8H IV Last administered on 11/10/24at 23:56; Start 11/10/24 at 08:00; Stop 11/11/24 at 00:01; Status DC Docusate Sodium 100 mg BID PO Last administered on 11/10/24at 19:50; Start 11/10/24 at 09:00; Stop 12/10/24 at 08:59 Potassium Chloride 100 ml @ 100 mls/hr AD PRN IV; Start 11/10/24 at 08:00; Stop 12/10/24 at 07:59 Potassium Chloride 20 meq AD PRN PO; Start 11/10/24 at 08:00; Stop 12/10/24 at 07:59 Potassium Chloride 20 meq AD PRN PO; Start 11/10/24 at 08:00; Stop 12/10/24 at 07:59 Tramadol HCl 50 mg Q6H PRN PO; Start 11/10/24 at 08:00; Stop 11/15/24 at 07:59 Acetaminophen/ Hydrocodone Bitart Q4H PRN PO; Start 11/10/24 at 08:00; Stop 11/10/24 at 07:41; Status DC Phenylephrine HCl 10 mg STK-MED ONCE IV; Start 11/10/24 at 07:38; Stop 11/10/24 at 07:39; Status DC Acetaminophen/ Hydrocodone Bitart 1 tab Q4H PRN PO; Start 11/10/24 at 08:00; Stop 11/15/24 at 07:59 Acetaminophen/ Hydrocodone Bitart 2 tab Q4H PRN PO Last administered on 11/11/24at 06:18; Start 11/10/24 at 08:00; Stop 11/15/24 at 07:59 Glycopyrrolate 1 mg STK-MED ONCE .ROUTE; Start 11/10/24 at 08:49; Stop 11/10/24 at 08:49; Status DC Neostigmine Methylsulfate 10 mg STK-MED ONCE IV; Start 11/10/24 at 08:49; Stop 11/10/24 at 08:49; Status DC Fentanyl Citrate 100 mcg STK-MED ONCE .ROUTE Last administered on 11/10/24at 09:41; Start 11/10/24 at 09:35; Stop 11/10/24 at 09:35; Status DC Ketorolac Tromethamine 15 mg STK-MED ONCE .ROUTE; Start 11/10/24 at 09:46; Stop 11/10/24 at 09:47; Status DC Cefazolin Sodium 2 gm Q8H IVP Last administered on 11/10/24at 23:56; Start 11/10/24 at 16:00; Stop 11/11/24 at 00:01; Status DC STARR FRANCES NP Nov 11, 2024 08:02
[2024-11-11] MEDS: ASPIRIN 325MG EC TAB PO SCH (09:02)
[2024-11-11 11:00] VITALS: BP 131/64; PULSE 77; RESP 19; TEMP 98.5
--- NOTE | 2024-11-11 11:20 | NUR ---
[facility] CM MET WITH PT INITIAL ASSESSMENT DONE. PATIENT IS INDEPENDENT PRIOR TO ADMISSION, SON LIVES WITH PT AT HOME. PATIENT HAS A WALKER, CANE, WHEELCHAIR, BEDSIDE COMMODE, SHOWER CHAIR. DENIES ANY OTHER EQUIPMENT/SERVICES. FEELS SAFE TO GO BACK HOME, STILL WORK AND DRIVE. DISCUSSED MD RECOMMENDATIONS FOR HOME W/HH FOR PT, PT ALREADY HAS WKR, PT AGREEABLE, CONSENT SIGNED ADRIANA FOR [facility]. [facility] HOME W/HH ONCE APPROVED. CM TO CONTINUE TO FOLLOW UP. Addendum: 11/11/24 at 1537 by GREGORIO ENCISO LVN Amended: Links added.
[2024-11-11] MEDS: CYCLOBENZAPRINE HCL 10 MG TABLET PO PRN (13:05)
[2024-11-11] MEDS ORDERED: HYDR-4060 PO (14:48)
[2024-11-11] MEDS ORDERED: CYCL-309 PO (14:48)
[2024-11-11] MEDS ORDERED: GABA100C PO (14:48)
[2024-11-11] MEDS ORDERED: DOCU-116 PO (14:48)
[2024-11-11] MEDS ORDERED: ASPI-891 PO (14:48)
--- NOTE | 2024-11-11 15:25 | NUR ---
DISCHARGE DISCHARGE ORDER FOR PATIENT TO BE DISCHARGED HOME WITH [facility] OBTAINED. APPROVAL FROM [facility] CONFIRMED BY CM. DISCHARGE ORDERS AND DOCUMENTATION GIVEN TO PATIENT AT BEDSIDE. VOICED UNDERSTANDING. IV DISCONTINUED, CATHETER INTACT, NO S/S OF INFECTION NOTED. BANDS REMOVED. PATIENT PENDING TRANSPORTATION FROM COUNTS INCLUDE 234 BEDS AT THE [facility].
--- NOTE | 2024-11-11 15:46 | NUR ---
GAVE REPORT ON PATIENT TO [facility]. VOICED UNDERSTANDING. WILL CONTACT PT FOR INITIAL VISIT.
--- NOTE | 2024-11-11 16:10 | NUR ---
DISCHARGE PATIENT LEFT VIA WHEELCHAIR ACCOMPANIED BY SON, NO S/S OF DISTRESS NOTED.
[2024-11-13] MEDS ORDERED: BisaCODYL 10 MG SUPP.RECT RC PRN (08:00)
== END 2024-11-11 16:30 | disposition home or self-care (01) ==
LOC: DAH 05:44 → DAHIP 05:45 → DAH 05:45 → 4AH 10:30
PROVIDERS: ADMIT Student in an Organized Health Care Education/Training Program; ATTEND Student in an Organized Health Care Education/Training Program
DX: M17.11 Unilateral primary osteoarthritis, right knee (principal); M25.561 Pain in right knee; E78.5 Hyperlipidemia, unspecified; E66.01 Morbid (severe) obesity due to excess calories; D62 Acute posthemorrhagic anemia; Z79.899 Other long term (current) drug therapy; Z98.890 Other specified postprocedural states
CPT/HCPCS: 82040; 80048 ×2; 85025; 85610; 85730; 87086 ×2; 87186; 84134; 86140; 81001; 36415 ×2; 93005; 87641; 27447; 96376; 96365; 96366; 96375; 73560; 97161; 97116 ×4; 97530 ×4; 85027; G0378 ×33; A4223 ×2; A4663; A4649 ×3; J7120; J3490 ×4; J3010 ×2; J1100; J2003; J2250; J2704; J2405; J1885 ×4; J2710; J2795 ×2; J2371; J0690 ×3; C1713 ×2; C1776 ×2; A4930 ×2; A6255; A5120; A4215; A4222; A4221; A4216; A4600

== ENCOUNTER → 2025-01-22 | Outpatient (CLI) | payer MEDICARE ==
[~2025-01-22] MED LIST changes: -APPLE CIDER PO; +ASPI-891 PO; -B1 PO; -B12 PO; +CYCL-309 PO; +DOCU-116 PO; +GABA100C PO; +HYDR-4060 PO; -OSTEO BIFLEX PO; -TOTAL BEETS PO; -ZINC PO; -d3 PO
== END | disposition home or self-care (01) ==
LOC: RAH 08:54
PROVIDERS: ATTEND Family Medicine
DX: Z12.31 Encounter for screening mammogram for malignant neoplasm of breast (principal)
CPT/HCPCS: 77063; 77067

== ENCOUNTER → 2025-02-18 | Outpatient (CLI) | payer MEDICARE ==
--- NOTE | 2025-02-18 13:15 | HMCIMG ---
BILATERAL BREAST ULTRASOUND: Graft clinical history: Workup for diagnostic mammogram with right breast sonogram. Finding: Real-time examination of the both breasts demonstrates heterogeneous echotexture throughout the right breast. The right breast at 12:00 there is a spiculated hypoechoic lesion measuring 0.8 x 0.6 x 0.8 cm. The right breast there is a small cyst at 6:00 measuring 0.4 x 0.3 x 0.4 cm. The right axillary region has 3 lymph node seen 1.4 x 0.8 x 1.4 cm lymph node measuring 0.9 x 0.9 x 0.5 cm. Third lymph node measuring 1.3 x 0.7 x 1.2 cm.. IMPRESSION: Right breast hypoechoic lesion at 12:00 is amenable for ultrasound-guided biopsy. FINAL ASSESSMENT: ACR: BI-RAD -4. Suspicious: Finding(s) without all the characteristics morphology of breast cancer but indicatingadefine probability of being malignant: biopsy should be considered.
--- NOTE | 2025-02-18 13:18 | HMCIMG ---
DIGITAL right breast DIAGNOSTIC MAMMOGRAM Technique: The digital mammographic examination right breast in craniocaudal, mediolateral oblique views along with CAD was obtained. Ultrasound of the right breast was obtained History: This is a 70 years year-old female 4, para3 Ab1 . Patient has no family history of breast cancer. Patient has no complaint Reference:Prior mammogram from 01/22/2025 along with other mammograms are also obtained.. Breast composition: Breast composition C: The breasts are heterogeneously dense, which may obscure small masses. Finding: The digital mammographic examination of right breast in craniocaudal and mediolateral oblique view along with CAD demonstrates demonstrate 8 mm lesion subareolar region which is also seen on ultrasound which appears to be spiculated the coned-down compression demonstrate mild spiculation.. There is no evidence of any dendritic mass, cluster microcalcification or architectural distortion. The retromammary fat appears to be normal. IMPRESSION: Right breast at 12:00 there is a lesion which is also seen and ultrasound and appears to be spiculated. I would recommend ultrasound-guided biopsy for further evaluation.. FINAL ASSESSMENT: ACR: BI-RAD -4. Suspicious: Finding(s) without all the characteristics morphology of breast cancer but indicatingadefine probability of being malignant: biopsy should be considered. NOTE: IF A WORK-UP OF THIS PATIENT LEADS TO A BIOPSY, PLEASE FORWARD A COPY OF THE PATHOLOGY REPORT TO OUR OFFICE REQUIRED BY [employer] E[employer] FEBRUARY 18, 1994. A NEGATIVE MAMMOGRAM SHOULD NOT PRECLUDE BIOPSY OF A CLINICALLY PALPABLE SUSPICIOUS MASS, 10% OF BREAST CANCERS ARE MAMMOGRAPHICALLY OCCULT. THIS MAMMOGRAPHY FACILITY IS FULLY ACCREDITED BY THE FOOD AND DRUG ADMINISTRATION (FDA). THANK YOU FOR THIS REFERRAL.
== END | disposition home or self-care (01) ==
LOC: RAH 07:40
PROVIDERS: ATTEND Family Medicine
DX: R92.331 Mammographic heterogeneous density, right breast (principal); R92.8 Other abnormal and inconclusive findings on diagnostic imaging of breast
CPT/HCPCS: 76641; 77065